=== PATIENT | female | born 1995 | race Caucasian/White ===

== ENCOUNTER 2021-05-22 12:48 | Emergency (ER) | payer BC, SELFPAY ==
[2021-05-22 13:06] VITALS: BP 121/85; PULSE 90; RESP 16; TEMP 36.8; O2SAT 98
--- NOTE | 2021-05-22 13:17 | ED.EYEPROB ---
HPI - Eye Problem General Chief complaint: Eye Problems Stated complaint: Bilateral Eye Irritation Time Seen by Provider: 05/22/21 13:10 Source: patient and RN notes reviewed Mode of arrival: ambulatory Limitations: no limitations History of Present Illness HPI Narrative: Patient presents today complaining of swelling, redness, and itching of her bilateral upper and lower eyelids. Symptoms began yesterday after using a different facial moisturizer than she normally uses. Denies redness, itching, or drainage of her eye itself. Denies vision changes. She has been using ibuprofen and Benadryl without relief. Patient is breast-feeding. chief complaint: other (Eyelid swelling, rash) Related Data Allergies Allergy/AdvReac Type Severity Reaction Status Date / Time No Known Allergies Allergy Verified 05/22/21 13:10 Review of Systems Review of Systems: CONSTITUTIONAL: Denies body aches, fever, chills, or sweats. EYES: Denies visual changes, redness, or discharge.+ Bilateral eyelid swelling and redness ENT: Denies rhinorrhea, congestion, sore throat, or otalgia. CARDIOVASCULAR: Denies chest pain, palpitations, or edema. RESPIRATORY: Denies cough or dyspnea. GASTROINTESTINAL: Denies abdominal pain, nausea, vomiting, or diarrhea. GENITOURINARY: Denies dysuria or hematuria. SKIN: Denies rash, itching, or wounds. MUSCULOSKELETAL: Denies back pain, joint pain, or myalgia. NEUROLOGIC: Denies headache, numbness, tingling, or weakness. PSYCH: Denies depression or anxiety. PMFSH Comments At time of signature, I have reviewed and agree with nursing past medical, surgical, social and family history unless otherwise noted. Please see nursing chart for further information. There is no relevant family history pertinent to the presenting complaint Exam Narrative: GENERAL: Well-appearing, well-nourished, and in no acute distress. HEAD: Normocephalic, atraumatic. EYES: EOMI. PERRL. Bilateral conjunctiva is mildly injected. Bilateral upper and lower eyelids and mildly erythematous and edematous, left greater than right. No active drainage. ENT: Mucous membranes pink and moist. NECK: Normal AROM. CHEST: No respiratory distress. EXTREMITIES: Normal range of motion. No edema. SKIN: Warm, dry, no rash. Capillary refill normal. Normal skin turgor. NEURO: No focal deficits. Alert and oriented x3. Gait steady. PSYCH: Normal affect. No signs of depression or anxiety. Course Course Level of Care: Express Care Visit Vital Signs Vital signs: Vital Signs Temperature 98.2 F 05/22/21 13:06 Pulse Rate 90 05/22/21 13:06 Respiratory Rate 16 05/22/21 13:06 Blood Pressure 121/85 05/22/21 13:06 Pulse Oximetry 98 05/22/21 13:06 Temperature 98.2 F 05/22/21 13:06 Pulse Rate 90 05/22/21 13:06 Respiratory Rate 16 05/22/21 13:06 Blood Pressure 121/85 05/22/21 13:06 Pulse Oximetry 98 05/22/21 13:06 Reviewed. Pt has been instructed to follow up with her PCP regarding her elevated blood pressure today. MDM - Eye Problem Differential Diagnosis Differential diagnosis: Likely conjunctivitis, periorbital cellulitis and other (Eczema, contact dermatitis) Critical Care Time Critical Care Time Critical Care Time: No Discharge Plan Discharge Clinical Impression: Contact dermatitis Qualifiers: Contact dermatitis type: unspecified Contact dermatitis trigger: unspecified trigger Qualified Code(s): L25.9 - Unspecified contact dermatitis, unspecified cause Patient Disposition: Home, Self-Care Condition: Stable Instructions: Contact Dermatitis (DC) Additional Instructions: Take the prednisone as prescribed. Continue an oral antihistamine such as Benadryl, Claritin, Zyrtec, or Alisia. Follow-up with your PCP with any concerns. It is recommended that you wait 4 hours before pumping or breast-feeding after taking her dose of prednisone. Your blood pressure was elevated above 120/80 today at Urgent Care. T
== END 2021-05-22 13:24 | disposition home or self-care (01) ==
PROVIDERS: Emergency Provider Nurse Practitioner
DX: L25.9 Unspecified contact dermatitis, unspecified cause (principal)
CPT/HCPCS: 99213; G0463

== ENCOUNTER 2022-06-02 15:58 | Emergency (ER) | payer BC, SELFPAY ==
[2022-06-02 16:06] VITALS: BP 110/96; PULSE 112; RESP 18; TEMP 36.8; O2SAT 100
--- NOTE | 2022-06-02 16:32 | ED.GENADULT ---
HPI - General Adult General Chief complaint: Upper Respiratory Infection Stated complaint: Sore throat Source: patient Mode of arrival: ambulatory Limitations: no limitations History of Present Illness HPI narrative: PATIENT PRESENTS FOR EVALUATION OF SICK SYMPTOMS FOR LAST 15 DAYS. SHE INITIALLY HAD A SORE THROAT AND FEVER. SEVERAL INDIVIDUALS WITH WHOM SHE HAD CLOSE CONTACT TESTED POSITIVE FOR STREP. SHE CONTACTED A COLLEAGUE WHO PRESCRIBED HER SOME AMOXICILLIN. SHE NOTED IMPROVEMENT IN VISUALIZED WHITE PATCHES IN HER POSTERIOR PHARYNX AND MILD IMPROVEMENT IN HER SORE THROAT. SHE HAS EXPERIENCED A PRODUCTIVE COUGH OF YELLOW SPUTUM. NO SOB OR CP. SHE HAS EXPERIENCED FATIGUE. SHE IS WONDERING WHETHER SHE HAS MONO. SHE DOES NOT SMOKE. SHE HAS TAKEN IBUPROFEN AND TYLENOL FOR HER SYMPTOMS. Related Data Home Medications Medication Instructions Recorded Confirmed fluoxetine 20 mg capsule 20 mg PO DAILY 06/02/22 06/02/22 Allergies Allergy/AdvReac Type Severity Reaction Status Date / Time No Known Allergies Allergy Verified 06/02/22 16:04 Review of Systems Review of Systems: CONSTITUTIONAL: REPORTS FEVER AND FATIGUE. DENIES CHILLS, OR SWEATS. EYES: DENIES VISUAL CHANGES, REDNESS, OR DISCHARGE. ENT: REPORTS SORE THROAT.DENIES RHINORRHEA, CONGESTION, OR OTALGIA. CARDIOVASCULAR: DENIES CHEST PAIN, PALPITATIONS, OR EDEMA. RESPIRATORY: REPORTS PRODUCTIVE COUGH OF YELLOW SPUTUM. DENIES DYSPNEA. GASTROINTESTINAL: DENIES ABDOMINAL PAIN, NAUSEA, VOMITING, OR DIARRHEA. GENITOURINARY: DENIES DYSURIA OR HEMATURIA. SKIN: DENIES RASH OR ITCHING. MUSCULOSKELETAL: DENIES BACK PAIN, JOINT PAIN, OR MYALGIA. NEUROLOGIC: DENIES HEADACHE, NUMBNESS, DIZZINESS, OR WEAKNESS. PSYCHIATRIC: DENIES ANXIETY OR DEPRESSION. [facility] Past Medical History Medical History (Updated 06/02/22 @ 17:16 by ALANNAH Rush, TRUDY) No pertinent past medical history Surgical History Surgical History No pertinent past surgical history Family History Family History Father Family history non-contributory Social History Social History Smoking status: Never smoker Substance use: never Living arrangements: with family Additional occupation/education comments: RN Gender identity (if verbalized by the patient): Female Sexual Orientation (if Verbalized by the Patient): Straight or Heterosexual Spiritual care concerns: No Exam Narrative: GENERAL: WELL-APPEARING, WELL-NOURISHED, AND IN NO ACUTE DISTRESS. HEAD: NORMOCEPHALIC, ATRAUMATIC. EYES: PERRLA AND EOMI. ENT: NARES CLEAR, NO RHINORRHEA OR EPISTAXIS. MUCOUS MEMBRANES MOIST. THERE IS POSTERIOR PHARYNGEAL ERYTHEMA WITHOUT EXUDATE. UVULA IS MIDLINE. BILATERAL TMS PEARLY SMITH NONBULGING NECK: SUPPLE. NO ADENOPATHY OR MASSES. NO CAROTID BRUITS OR JVD CHEST: CLEAR TO AUSCULTATION. NO RESPIRATORY DISTRESS. NO WHEEZES RALES OR RHONCHI HEART: REGULAR RATE AND RHYTHM. NO MURMUR HEARD. NORMAL PERIPHERAL PULSES. ABDOMEN: SOFT, NONTENDER, NONDISTENDED, NORMAL ACTIVE BOWEL SOUNDS. EXTREMITIES: NORMAL RANGE OF MOTION. NO EDEMA. SKIN: WARM, DRY, NO RASH. NEURO: NO FOCAL DEFICITS. ALERT AND ORIENTED X3. PSYCH: NORMAL MOOD AND AFFECT. Course Course Emergency Course: This is a 27-year-old female who presented for evaluation of sore throat. Mitchell and strep were negative. I did offer to swab her for COVID and flu which she declined. Exam is consistent with acute viral syndrome. She states ibuprofen is not significantly help with pain. Will discharge with Cepacol a small volume viscous lidocaine. Follow up with primary provider. if symptoms persist, she may benefit from seeing ENT. There is no evidence of peritonsillar abscess on exam. Go to the ER for difficulty breathing or swallowing. Pt in agr
== END 2022-06-02 17:18 | disposition home or self-care (01) ==
PROVIDERS: Emergency Provider Nurse Practitioner
DX: J02.9 Acute pharyngitis, unspecified (principal)
CPT/HCPCS: 36416; 86308; 87081; 87880; 99213; G0463